=== PATIENT | male | born 1975 | race Caucasian/White ===

== ENCOUNTER 2020-05-31 20:18 | Inpatient (IN) ==
[2020-05-31] MEDS ORDERED: 0.9 % Sodium Chloride 1,000 ML IVC ONE (21:16)
[2020-05-31 21:41] LABS: Basophils % 0.2 %; Hematocrit 49.8 % (37.5-50.1); Hemoglobin 15.8 g/dL (12.9-16.9); Immature Granulocytes % 0.4 % (0-4); Lymphocytes % 17.9 %; Mean Corpuscular HGB Conc 31.7 g/dL (31.6-35.5); Mean Corpuscular Hemoglobin 26.4 pg (28.0-33.3); Mean Corpuscular Volume 83.3 fL (83.0-100.0); Mean Platelet Volume 10.2 fL (9.4-12.4); Monocytes # 0.8 K/mcL (0.0-1.3); Neutrophils # 3.6 K/mcL (1.6-8.9); Platelet Count 170 K/mcL (140-400); Red Blood Count 5.98 M/mcL (4.19-5.50); Red Cell Distribution Width 13.9 % (11.5-14.5); Segmented Neutrophils % 66.5 %; White Blood Count 5.5 K/mcL (4.3-11.1)
[2020-05-31 22:18] LABS: BUN/Creatinine Ratio 7 (6-26); Blood Urea Nitrogen 11 mg/dL (6-20); Calcium 8.1 mg/dL (8.6-10.3); Carbon Dioxide 29 mEq/L (23-29); Chloride 96 mEq/L (98-107); Glucose 113 mg/dL (70-105); Osmolality,Calculated 278 (280-300); Potassium 4.2 mEq/L (3.5-5.1); Sodium 134 mEq/L (136-145); Troponin I < 0.03 ng/mL (< 0.04); eGFR For African Americans 57 (> 60); eGFR For Non-African Americans 47 (> 60)
[2020-05-31] MEDS ORDERED: Isovue-370 500 ML BOTTLE IVP ONE (22:36)
[2020-05-31] MEDS ORDERED: Dexamethasone 4 MG/ML VIAL IVP ONE (23:55)
[2020-06-01] MEDS ORDERED: Dextrose Gel 15 GM/37.5 ML TUBE PO PRN ×2 (00:45)
[2020-06-01] MEDS ORDERED: *HR* Dextrose 50 % in Water (Vial) 50 ML VIAL IVP PRN (00:45)
[2020-06-01] MEDS ORDERED: D5% in Water 1,000 ML IVC PRN (00:45)
[2020-06-01] MEDS: Acetaminophen 325 MG TABLET PO PRN ×2 (02:30→12:59)
[2020-06-01 02:55] LABS: Basophils % 0.2 %; Hematocrit 45.6 % (37.5-50.1); Hemoglobin 14.2 g/dL (12.9-16.9); Immature Granulocytes % 0.4 % (0-4); Lymphocytes # 0.7 K/mcL (0.6-4.6); Lymphocytes % 12.3 %; Mean Corpuscular HGB Conc 31.1 g/dL (31.6-35.5); Mean Corpuscular Hemoglobin 26.8 pg (28.0-33.3); Mean Corpuscular Volume 86.2 fL (83.0-100.0); Mean Platelet Volume 10.2 fL (9.4-12.4); Monocytes # 0.6 K/mcL (0.0-1.3); Monocytes % 10.3 %; Neutrophils # 4.1 K/mcL (1.6-8.9); Platelet Count 163 K/mcL (140-400); Red Blood Count 5.29 M/mcL (4.19-5.50); Red Cell Distribution Width 14.1 % (11.5-14.5); Segmented Neutrophils % 76.8 %; White Blood Count 5.4 K/mcL (4.3-11.1)
[2020-06-01 03:16] LABS: BUN/Creatinine Ratio 9 (6-26); Blood Urea Nitrogen 12 mg/dL (6-20); Calcium 7.5 mg/dL (8.6-10.3); Carbon Dioxide 27 mEq/L (23-29); Chloride 98 mEq/L (98-107); Glucose 124 mg/dL (70-105); Osmolality,Calculated 277 (280-300); Sodium 133 mEq/L (136-145); eGFR For African Americans > 60 (> 60); eGFR For Non-African Americans 57 (> 60)
[2020-06-01 03:18] LABS: Lactate Dehydrogenase 187 Units/L (140-271)
[2020-06-01 03:35] LABS: Ferritin 237 ng/mL (20-250)
[2020-06-01] MEDS ORDERED: *HR* Enoxaparin 40 MG/0.4 ML SYRINGE SQ SCH (06:00)
[2020-06-01] MEDS: Insulin LISPRO 300 UNITS/3 ML VIAL SUBQ SCH ×3 (08:00→17:00)
[2020-06-01] MEDS ORDERED: diazePAM 10 MG TABLET PO PRN (11:32)
[2020-06-01] MEDS ORDERED: Morphine Sulfate ER (12 HR) 30 MG TABLET.ER PO SCH (11:45)
[2020-06-01] MEDS: Morphine Sulfate ER (12 HR) 30 MG TABLET.ER PO SCH ×2 (13:00→20:46)
[2020-06-01] MEDS: *HR* Enoxaparin 40 MG/0.4 ML SYRINGE SQ SCH (19:26)
[2020-06-01] MEDS: *HR* HYDROmorphone 4 MG TABLET PO PRN (21:40)
[2020-06-02] MEDS: *HR* Enoxaparin 40 MG/0.4 ML SYRINGE SQ SCH (06:07)
[2020-06-02 06:09] LABS: Basophils % 0.3 %; Hematocrit 47.2 % (37.5-50.1); Hemoglobin 14.6 g/dL (12.9-16.9); Immature Granulocytes % 0.5 % (0-4); Lymphocytes % 16.9 %; Mean Corpuscular HGB Conc 30.9 g/dL (31.6-35.5); Mean Corpuscular Hemoglobin 26.3 pg (28.0-33.3); Mean Platelet Volume 9.4 fL (9.4-12.4); Monocytes # 0.6 K/mcL (0.0-1.3); Monocytes % 9.7 %; Neutrophils # 4.4 K/mcL (1.6-8.9); Platelet Count 138 K/mcL (140-400); Red Blood Count 5.55 M/mcL (4.19-5.50); Red Cell Distribution Width 14.2 % (11.5-14.5); Segmented Neutrophils % 72.6 %
[2020-06-02 06:35] LABS: Alanine Aminotransferase 26 Units/L (7-52); Albumin 3.5 g/dL (3.5-5.7); Albumin/Globulin Ratio 1.3 (1.1-2.2); Alkaline Phosphatase 52 Units/L (34-104); Aspartate Amino Transferase 31 Units/L (13-39); BUN/Creatinine Ratio 12 (6-26); Bilirubin,Direct 0.2 mg/dL (0.0-0.2); Bilirubin,Indirect 0.4 mg/dL (0.0-1.0); Bilirubin,Total 0.6 mg/dL (0.3-1.0); Blood Urea Nitrogen 9 mg/dL (6-20); Calcium 8.1 mg/dL (8.6-10.3); Carbon Dioxide 28 mEq/L (23-29); Chloride 99 mEq/L (98-107); Globulin 2.8 g/dL (2.4-3.5); Glucose 89 mg/dL (70-105); Osmolality,Calculated 286 (280-300); Potassium 3.4 mEq/L (3.5-5.1); Sodium 139 mEq/L (136-145); Total Protein 6.3 g/dL (6.4-8.9); eGFR For African Americans > 60 (> 60); eGFR For Non-African Americans > 60 (> 60)
[2020-06-02] MEDS ORDERED: Dexamethasone 4 MG/ML VIAL IVP SCH (09:00)
[2020-06-02] MEDS ORDERED: Dexamethasone 4 MG/ML VIAL IVP ONE (09:00)
[2020-06-02] MEDS: Insulin LISPRO 300 UNITS/3 ML VIAL SUBQ SCH ×2 (09:33→12:25)
[2020-06-02] MEDS: Morphine Sulfate ER (12 HR) 30 MG TABLET.ER PO SCH (09:36)
[2020-06-02] MEDS: *HR* HYDROmorphone 4 MG TABLET PO PRN (09:43)
[2020-06-02 16:13] VITALS: BP 131/86
== END 2020-06-02 17:02 | disposition home or self-care (01) | DRG 871 ==
LOC: 2NENU 20:18 → EMEROOARM 20:18 → SUATTDRO 06-01 00:19 → 2NENU 06-01 01:20
PROVIDERS: ADMIT Student in an Organized Health Care Education/Training Program; ATTEND Student in an Organized Health Care Education/Training Program